=== PATIENT | female | born 1990 | race Two or more races ===

== ENCOUNTER 2017-08-02 13:26 | Emergency (ER) | payer OTHER ==
[2017-08-02 13:35] VITALS: TEMP 98.3; BMI 32.3
[2017-08-02] MEDS ORDERED: ONDANSETRON *ODT* 4 MG TABLET SL ONE (14:34)
--- NOTE | 2017-08-02 14:34 | PDOC ---
Rapid Medical Evaluation Chief Complaint: Nausea/Vomiting Time Seen by Provider: 08/02/17 14:29 Medical Evaluation: Allergies Allergy/AdvReac Type Severity Reaction Status Date / Time No Known Allergies Allergy Verified 08/02/17 13:32 Vital Signs Temp Pulse Resp BP Pulse Ox 98.3 F 101 H 18 91/54 100 08/02/17 13:32 08/02/17 13:32 08/02/17 13:32 08/02/17 13:32 08/02/17 13:32 08/02/17 14:31 Pt. is a 26 y/o F 9 weeks . States she has vomiting since 6 weeks. On diclegis and vomiting up medication as well. Sent by her [facility]ER for eval. Lower abdominal pain with vomiting. No vaginal bleeding, dysuria, hematuria. Pt. with documented IUP by her OB. Exam: ambulatory, AAOX3, breathing easily. No active vomiting Orders: labs, IV insert Pt. to proceed to main ED for further evaluation. Discharge Disposition - Discharge Dispostion Last Admission D/C Date: 09/03/13 - Referrals Referrals: Jayesh Ferrara MD [Primary Care Provider] - - Patient Instructions - Post Discharge Activity
[2017-08-02] MEDS ORDERED: ONDANSETRON *ODT* 4 MG TABLET ONE (15:10)
[2017-08-02 15:25] LABS: BASO % 0.6 % (0-2.0); EOS % 0.1 % (0-4.5); HEMOGLOBIN 12.1 GM/dL (10.7-15.3); LYMPH % 20.3 % (8-40); MCH 30.5 pg (25.7-33.7); MCHC 33.6 g/dl (32.0-36.0); MEAN CELL VOLUME 90.8 fl (80-96); MEAN PLT VOLUME 8.8 fl (7.5-11.1); MONO % 8.4 % (3.8-10.2); NEUT % 70.6 % (42.8-82.8); PLATELET COUNT 268 K/MM3 (134-434); RBC 3.96 M/mm3 (3.60-5.2); RDW 13.8 % (11.6-15.6); WHITE BLOOD COUNT 7.2 K/mm3 (4.0-10.0)
[2017-08-02] MEDS ORDERED: SODIUM CHLORIDE 1,000 ML IV STA (15:36)
--- NOTE | 2017-08-02 15:43 | PDOC ---
History of Present Illness - General Chief Complaint: Nausea/Vomiting Stated Complaint: VOMITING (9 WKS ) Time Seen by Provider: 08/02/17 14:29 History Source: Patient - History of Present Illness Timing/Duration: reports: getting worse Past History - Past Medical History Allergies/Adverse Reactions: Allergies Allergy/AdvReac Type Severity Reaction Status Date / Time No Known Allergies Allergy Verified 08/02/17 13:32 Home Medications: Ambulatory Orders Sulfamethoxazole/Trimethoprim [Bactrim Ds -] 1 tab PO BID #14 tablet 06/02/15 Metoclopramide HCl [Reglan] 10 mg PO Q8H #15 tablet 08/02/17 Asthma: No Cancer: No Cardiac Disorders: No COPD: No Diabetes: No HTN: No Hypercholesterolemia: Yes Seizures: No Thyroid Disease: No - Surgical History Abdominal Surgery: Yes - Reproductive History (#): 6 Para: 1 Therapeutic (s) & number: Yes (2) Spontaneous : 2 - Suicide/Smoking/Psychosocial Hx Smoking History: Never smoked Have you smoked in the past 12 months: No Information on smoking cessation initiated: No Hx Alcohol Use: No Drug/Substance Use Hx: No Substance Use Type: None Hx Substance Use Treatment: No Review of Systems - Review of Systems Constitutional: No: Fever ABD/GI: Yes: Nausea, Vomiting. No: Abdominal cramping : No: Dysuria, Discharge *Physical Exam - Vital Signs Last Vital Signs Temp Pulse Resp BP Pulse Ox 98.3 F 101 H 18 91/54 100 08/02/17 13:32 08/02/17 13:32 08/02/17 13:32 08/02/17 13:32 08/02/17 13:32 - Physical Exam General Appearance: Yes: Appropriately Dressed. No: Apparent Distress HEENT: positive: Normal Voice Neck: positive: Supple Respiratory/Chest: negative: Respiratory Distress Gastrointestinal/Abdominal: positive: Soft. negative: Tender Integumentary: positive: Dry, Warm Neurologic: positive: Fully Oriented, Alert, Normal Mood/Affect ED Treatment Course - LABORATORY CBC & Chemistry Diagram: 08/02/17 15:17 08/02/17 15:17 - ADDITIONAL ORDERS Additional order review: 08/02/17 15:17 RBC 3.96 D MCV 90.8 MCHC 33.6 RDW 13.8 MPV 8.8 Neutrophils % 70.6 Lymphocytes % 20.3 Monocytes % 8.4 Eosinophils % 0.1 D Basophils % 0.6 - Medications Given in the ED: ED Medications Discontinued Medications Generic Name Dose Route Start Last Admin Trade Name Gaurang PRN Reason Stop Dose Admin Ondansetron HCl 4 mg 08/02/17 14:34 08/02/17 15:11 Zofran Odt - SL 08/02/17 14:35 4 mg ONCE ONE Administration Medical Decision Making - Medical Decision Making 08/02/17 15:37 26 yo F, , ~9 weeks by dates, on diclegis for n/v of that developed during 6 week gestation, here with complaint that 3 days ago meds stopped working and has been unable to tolerate po. No abdominal pain, vaginal bleeding or dysuria. Ultrasound 1 week ago showing normal developing fetus with cardiac activity. Was given zofran at triage and feels better per pt See exam Hyperemesis Hypotensive and tachy -IVF -zofran given in RME -labs -reassess/po trial 08/02/17 17:39 Patient currently asymptomatic and able to tolerate po. Labs unremarkable and repeat vitals improved. Patient stable for discharge. Prescription for Reglan sent to pharmacy. Has upcoming OB appointment. Reasons to return discussed with patient *DC/Admit/Observation/Transfer Diagnosis at time of Disposition: Hyperemesis - Discharge Dispostion Disposition: HOME Condition at time of disposition: Improved - Prescriptions Prescriptions: Metoclopramide HCl [Reglan] 10 mg PO Q8H #15 tablet - Referrals Referrals: Jayesh Ferrara MD [Primary Care Provider] - - Patient Instructions Printed Discharge Instructions: DI for Hyperemesis Gravidarum Additional Instructions: Take Reglan as directed. If symptoms worsen, return to ED. Otherwise, follow-up with your OB - Post Discharge Activity
[2017-08-02 16:01] LABS: URINE APPEARANCE CLEAR; URINE BILIRUBIN NEGATIVE (<2.0 mg/dL); URINE COLOR AMBER; URINE GLUCOSE (UA) 1+ (NEGATIVE); URINE KETONE TRACE (NEGATIVE); URINE LEUK ESTERASE NEGATIVE (NEGATIVE); URINE NITRITE NEGATIVE (NEGATIVE); URINE UROBILINOGEN 4.0 E.U/dl mg/dL (0.2-1.0)
[2017-08-02 16:02] LABS: URINE PROTEIN 1+ (NEGATIVE)
[2017-08-02 16:03] LABS: EPI CELLS RARE /HPF (FEW); URINE MUCUS MODERATE
[2017-08-02 16:08] LABS: ALBUMIN 3.4 g/dl (3.4-5.0); ANION GAP 7 (8-16); BLOOD UREA NITROGEN 11 mg/dL (7-18); CALCIUM 8.9 mg/dL (8.5-10.1); CHLORIDE 102 mmol/L (98-107); CO2 26 mmol/L (21-32); CREATININE 0.7 mg/dL (0.55-1.02); GLUCOSE,RANDOM 83 mg/dL (74-106); POTASSIUM 4.4 mmol/L (3.5-5.1); SGOT/AST 13 U/L (15-37); SGPT/ALT 39 U/L (12-78); SODIUM 135 mmol/L (136-145)
[2017-08-02 16:09] LABS: ALK PHOS 57 U/L (45-117); BILIRUBIN,TOTAL 0.4 mg/dL (0.2-1.0); TOT PROT 7.4 g/dl (6.4-8.2)
[2017-08-02 17:37] VITALS: BP 120/63; PULSE 90
== END 2017-08-02 17:55 | disposition home or self-care (01) ==
LOC: JER 13:26
PROC: 3E0337Z Introduction of Electrolytic and Water Balance Substance into Peripheral Vein, Percutaneous Approach (ICD-10-PCS; principal; 2017-08-02)
DX: O26.891 Other specified pregnancy related conditions, first trimester (principal); O21.0 Mild hyperemesis gravidarum; Z3A.09 9 weeks gestation of pregnancy
CPT/HCPCS: 36415; 80053; 81003; 81015; 85025; 87086; 99283-25; J7030; Q0162

== ENCOUNTER 2018-02-13 06:55 | Inpatient (IN) | payer OTHER ==
[~2018-02-13 06:55] MED LIST: ELECTROLYTE-148 SOLN 1,000 ML IV ONE
[2018-02-13] MEDS: ELECTROLYTE-148 SOLN 1,000 ML IV SCH (07:25)
[2018-02-13 08:19] VITALS: BMI 34.8
[2018-02-13] MEDS ORDERED: morphine SULFATE/Preservative Free 0.5 MG/ML (1cc Syringe) ONE (08:54)
[2018-02-13] MEDS ORDERED: ePHEDrine SULFATE 50 MG/1 ML AMPULE ONE (08:54)
[2018-02-13] MEDS ORDERED: CITRIC ACID/SODIUM CITRATE 30 ML UNIT-DOSE CUP PO ONE (09:00)
[2018-02-13] MEDS ORDERED: OXYTOCIN 20 UNITS in 0.9% NS 20 UNIT/1,000 ML INFUS.BAG IV ONE (09:12)
[2018-02-13] MEDS ORDERED: morphine SULFATE/Preservative Free 0.5 MG/ML (1cc Syringe) EP ONE (09:25)
[2018-02-13] MEDS: OXYTOCIN 20 UNITS in 0.9% NS 20 UNIT/1,000 ML INFUS.BAG IV SCH ×2 (10:07→20:20)
[2018-02-13] MEDS ORDERED: METHYLERGONOVINE MALEATE 0.2 MG/1 ML AMP IM PRN (10:52)
[2018-02-13] MEDS ORDERED: WITCH HAZEL 50% (TUCKS) 40 PAD/JAR PAD TP PRN (10:52)
[2018-02-13] MEDS ORDERED: SENNOSIDES/DOCUSATE COMBO (SENNA PLUS) TABLET (UD) PO PRN (10:52)
[2018-02-13] MEDS ORDERED: DEXTROSE 5%-LACTATED RINGERS 1,000 ML IV SCH (11:00)
--- NOTE | 2018-02-13 11:02 | HP ---
Past Medical History - Admission History of Present Illness: 27 yo @ 37 1/7 wks by first trimester ultrasound, EDC 03/05/2018 complicated by: 1. Intrahepatic cholestasis of - diagnosed at 34 wks on ursodiol 300 BID 2. Prior CD x2 3. Hyperemesis in first trimester - resolved at 26 wks Patient presented for scheduled repeat CD at 37 wks, as recommended by [facility] for cholestasis of . She reports movement, denies leakage of fluid, or vaginal bleeding. History Source: Patient Limitations to Obtaining History: No Limitations - Past Medical History Cardiovascular: No: HTN Pulmonary: No: Asthma ...: 6 ...Para: 2 ...Term: 2 ...: 0 ...Spon : 2 ...Induced : 1 ...Multiple Gestation: 0 ...LMP: 05/22/17 ... Weeks Gestation by Dates: 38.1 ...EDC by Dates: 02/26/18 ...EDC by Sono: 03/06/18 Heme/Onc: No: Anemia Additional Medical History: Hypercholesterolemia. hx/o Scar etopic - s/p methotrexate x 2 - Past Surgical History Past Surgical History: Yes: Hx Myomectomy: No Hx Transabdominal Cerclage: No - Smoking History Smoking history: Unknown if ever smoked Have you smoked in the past 12 months: No - Alcohol/Substance Use Hx Alcohol Use: No History of Substance Use: reports: None - Social History History of Recent Travel: No Home Medications - Allergies Allergies/Adverse Reactions: Allergies Allergy/AdvReac Type Severity Reaction Status Date / Time No Known Allergies Allergy Verified 02/13/18 08:26 - Home Medications Home Medications: Ambulatory Orders Vitamins (Sjr) - 1 tab PO DAILY 11/05/17 Ursodiol [Actigall] 300 mg PO BID 02/02/18 Iron 100 Plus Tablet 1 tablet PO DAILY 02/13/18 Family Disease History - Family Disease History Family History: Denies Review of Systems - Review of Systems Constitutional: reports: No Symptoms, Other (itching) Cardiovascular: reports: No Symptoms Respiratory: reports: No Symptoms Gastrointestinal: reports: No Symptoms Genitourinary: reports: No Symptoms Musculoskeletal: reports: No Symptoms Neurological: reports: No Symptoms Endocrine: reports: No Symptoms Hematology/Lymphatic: reports: No Symptoms Physical Exam - Maternity Vital Signs: Vital Signs Temperature 98.3 F 02/13/18 06:55 Pulse Rate 110 H 02/13/18 06:55 Respiratory Rate 20 02/13/18 08:20 Blood Pressure 114/65 02/13/18 06:55 O2 Sat by Pulse Oximetry (%) Constitutional: Yes: Well Nourished, No Distress, Calm Cardiovascular: Yes: Regular Rate and Rhythm Lungs: Clear to auscultation - Abdominal Exam/OB Number of Fetuses: Single Presentation: Vertex Contractions: No Regularity: Regular Monitor Mode: External Category: I Accelerations: Non-Uniform Decelerations: None - Vaginal Exam/OB Vaginal Bleediing: No - Physical Exam Edema: Yes Edema: LLE: Trace, RLE: Trace Psychiatric: Yes: Alert, Oriented - Labs Lab Results: PNL: A positive, antobody negative, RPR NR; HIV neg; Rubella immune; GCT WNL; Consyl WNL; Sequential screen WNL Hemorrhage Risk Assessment - Risk Factors Medium Risk Factors: Yes: None High Risk Factors: Yes: None Risk Score: 1 Risk Level: Medium Risk Assessment/Plan 27 yo @ 37 wks for repeat CD 1. Admit to L&D 2. Routine labs reviewed 3. Ancef button cutter to OR 4. Will proceed to OR
--- NOTE | 2018-02-13 11:23 | PN ---
"Delivery - Delivery Section: Repeat Type of Anesthesia: Spinal Episiotomy/Laceration: None EBL (cc): 800 Delivery, Single - Stages of Labor Date of Delivery: 02/13/18 Time of Delivery: 10:06 Time Placenta Delivered: 10:07 Placenta: Yes: Manual Removal - Condition of Property Insurance Inspector/Operations Team Leader Present: Yes Name: Sherie Baron Infant Gender: Female Weight: 6 lb 6 oz Position: Left, OT Total Hours ROM (Hrs/Mins): 2 mins - 1 Minute Total Score: 9 5 Minutes Total Score: 9 - Feeding Plan Initial Plan: Elected not to breastfeed exclusively throughout hospitalization Remarks - Remarks Remarks: Surgeon: Hammad | Assist: Mich | Anesthesia: Olteanu IVF: 2000cc | EBL: 800 | UOP: 100 Findings: female infant, LOT position, 9,9, wt 6lb 6oz 18' Dictation: [id number]"
[2018-02-13] MEDS ORDERED: ONDANSETRON 4 MG/2 ML VIAL IVPUSH PRN (11:25)
[2018-02-13] MEDS: IBUPROFEN 800 MG/8 ML IJ IVPB PRN (12:30)
[2018-02-13] MEDS ORDERED: IBUPROFEN 800 MG/8 ML IJ IVPB ONE (12:30)
--- NOTE | 2018-02-13 14:17 | OP ---
DATE OF OPERATION: 02/13/2018 ATTENDING PHYSICIAN: Denise Cueva MD PREOPERATIVE DIAGNOSIS: Intrauterine at 37 weeks with cholestasis for repeat section as recommended by Maternal [facility]. FINDINGS: Female LOT position, Apgars 9, 9, weight 6 pounds 6 ounces, 18 inches. IV FLUIDS: 2000. ESTIMATED BLOOD LOSS: 800. URINE OUTPUT: 100. SURGEON: Denise Cueva MD LEGAL INSTRUCTOR: Abel Epps MD ANESTHESIA: Dr. Rutherford INDICATIONS: The patient is a 27-year-old 6, para 2 with prior section x2 with diagnosis of cholestasis at 34 weeks for recommended delivery at 36-37 weeks. She was counseled regarding the risks, benefits, alternatives, and complications of the procedure including infection, bleeding, damage to surrounding organs such as bowel, bladder, injury to infant because the infant is being delivered less than 39 weeks, risk of respiratory distress. She expressed understanding and was brought to the operating room. DESCRIPTION OF PROCEDURE: When anesthesia was found to be adequate, the patient was prepped and draped in the normal sterile fashion and placed in dorsal supine position with a leftward tilt. Approximately an 11-cm skin incision was made with a knife and carried down to the underlying rectus fascia using a knife. The fascia was nicked in the midline and extended laterally using Palafox scissors. Attention was brought to the inferior fascia incision, which was tented up using Sam clamps, dissected off the underlying rectus muscle using the Palafox scissors. Attention was directed to the superior portion where in a similar fashion it was tented up using Sam clamps and dissected off the underlying rectus muscle using Palafox scissors. The rectus abdominis were in the midline with a knife, and the peritoneal incision was extended superiorly and inferiorly using the Palafox scissors. The vesicouterine peritoneum was identified and entered sharply. The bladder flap was created sharply. Hysterotomy was performed with a knife and extended laterally bluntly, and the 's head was found to be LOT position, and 's head was brought to the hysterotomy site followed by shoulders and body without difficulty. The baby's mouth and nose werebulb suctioned. Cord blood and cord gases were collected and sent. The was handed to waiting NICU staff. The uterus was cleared of all clot and debris. The uterus was exteriorized and cleared of all clot and debris, and the placenta was manually extracted. The uterus was closed using 0 Biosyn in a running layer. The 2nd layer was an imbricating layer. The gutters were cleared of all clot and debris. Bilateral normal fallopian tubes and ovaries were noted. The uterus was returned into the abdominal cavity, and vesicouterine peritoneum was reapproximated. Good hemostasis was noted. Copious irrigation was performed. The peritoneum was closed using 2-0 Biosyn in a running fashion. The rectus muscles were reapproximated using0 Biosyn in an interrupted fashion. The fascia was closed using 0 Vicryl in a running fashion. The subcutaneous fat was closed using 2-0 Biosyn in a running fashion, and the skin was re-approximated using 3-0 Vicryl. The patient tolerated the procedure well. Estimated blood loss was 800 mL. The patient was brought to the recovery room in stable condition. Chriss [id number] MTDD
[2018-02-13] MEDS ORDERED: TUBERCULIN PPD 5 TU/0.1ML SYRINGE (IN PATIENT USE ONLY) ID ONE (15:00)
[2018-02-14] MEDS: IBUPROFEN 800 MG/8 ML IJ IVPB PRN (06:00)
[2018-02-14 07:04] LABS: BASO % 0.2 % (0-2.0); EOS % 0.7 % (0-4.5); HEMATOCRIT 25.8 % (32.4-45.2); LYMPH % 13.3 % (8-40); MCH 30.4 pg (25.7-33.7); MEAN CELL VOLUME 86.8 fl (80-96); MEAN PLT VOLUME 8.9 fl (7.5-11.1); MONO % 7.1 % (3.8-10.2); NEUT % 78.7 % (42.8-82.8); PLATELET COUNT 224 K/MM3 (134-434); RBC 2.97 M/mm3 (3.60-5.2); WHITE BLOOD COUNT 8.1 K/mm3 (4.0-10.0)
--- NOTE | 2018-02-14 09:03 | PN ---
Post Progress Note - Subjective Subjective: Patient without acute complaints. No nausea or vomiting. Denies fevers or chills. Pain well controlled, ambulating Not Breast feeding. Post Day: 1 Type of Delivery: Repeat C/S Vital Signs: Vital Signs Temperature 98.6 F 02/14/18 05:55 Pulse Rate 100 H 02/14/18 05:55 Respiratory Rate 20 02/14/18 05:55 Blood Pressure 100/62 02/14/18 05:55 O2 Sat by Pulse Oximetry (%) 100 02/13/18 12:05 Breast Exam: Yes: Soft Uterus: Yes: Fundus Firm Incision: Yes: Dressing dry and intact Abdomen/GI: Yes: Abdomen soft Lochia: Yes: Rubra Lochia, amount: Small Extremities: Yes: Calves non-tender Perineum: Yes: Intact Activity: Ambulating - Labs Labs: CBC WBC 8.1 K/mm3 (4.0-10.0) 02/14/18 06:00 RBC 2.97 M/mm3 (3.60-5.2) L 02/14/18 06:00 Hgb 9.0 GM/dL (10.7-15.3) L 02/14/18 06:00 Hct 25.8 % (32.4-45.2) L D 02/14/18 06:00 MCV 86.8 fl (80-96) 02/14/18 06:00 MCH 30.4 pg (25.7-33.7) 02/14/18 06:00 MCHC 35.0 g/dl (32.0-36.0) 02/14/18 06:00 RDW 15.0 % (11.6-15.6) 02/14/18 06:00 Plt Count 224 K/MM3 (134-434) 02/14/18 06:00 MPV 8.9 fl (7.5-11.1) 02/14/18 06:00 Absolute Neuts (auto) 6.4 K/mm3 (1.5-8.0) 02/14/18 06:00 Neutrophils % 78.7 % (42.8-82.8) 02/14/18 06:00 Lymphocytes % 13.3 % (8-40) D 02/14/18 06:00 Monocytes % 7.1 % (3.8-10.2) 02/14/18 06:00 Eosinophils % 0.7 % (0-4.5) 02/14/18 06:00 Basophils % 0.2 % (0-2.0) 02/14/18 06:00 Nucleated RBC % 0 % (0-0) 02/14/18 06:00 Assessment/Plan 27yo P3 s/p repeat c/section POD # 1 The pt is asymptomatic for s/sxs of anemia. care instructions reviewed. Rh positive no need for RhoGam Female formula feeding Will follow H/H Pruritis under control Continue routine postop care. Ambulation encouraged.
[2018-02-14] MEDS ORDERED: PATIENT'S OWN MEDICATION (NON-FORMULARY) (Prenatal Vitamins (Sjr) - 1 TAB) PO SCH (10:00)
[2018-02-14] MEDS: PRENATAL VITAMINS W/ FOLIC ACID TABLET (FP) PO SCH (10:27)
[2018-02-14] MEDS: ENOXAPARIN NA (PORCINE) 40 MG/0.4 ML DISP.SYRIN SQ SCH (10:27)
[2018-02-14] MEDS: IBUPROFEN 600 MG TABLET (FP) PO PRN ×3 (10:34→21:14)
[2018-02-14] MEDS: SIMETHICONE 80 MG TAB.CHEW (FP) PO PRN ×3 (10:34→21:15)
[2018-02-14] MEDS ORDERED: BISACODYL 10 MG SUPP.RECT RC PRN (10:52)
[2018-02-14] MEDS: OXYTOCIN 20 UNITS in 0.9% NS 20 UNIT/1,000 ML INFUS.BAG IV SCH (15:00)
[2018-02-14] MEDS: ELECTROLYTE-148 SOLN 1,000 ML IV SCH (15:00)
--- NOTE | 2018-02-14 15:20 | PN ---
Progress Note (short form) - Note Progress Note: Anesthesia postop note 27 y/o F s/p spinal/duramorph for repeat section POD#1, vss, aaox3, pain well controlled, sensory motor intact distally No anesthesia complications.
[2018-02-14] MEDS: oxyCODONE HCL 5 MG TABLET PO PRN ×2 (15:39→21:15)
[2018-02-15] MEDS: IBUPROFEN 600 MG TABLET (FP) PO PRN ×3 (05:43→20:47)
[2018-02-15] MEDS: oxyCODONE HCL 5 MG TABLET PO PRN ×3 (05:43→20:46)
[2018-02-15] MEDS: SIMETHICONE 80 MG TAB.CHEW (FP) PO PRN ×3 (05:43→20:47)
--- NOTE | 2018-02-15 07:26 | PN ---
Post Progress Note - Subjective Subjective: Patient without acute complaints. No nausea or vomiting. Denies fevers or chills. Pain well controlled, ambulating Not Breast feeding. Post Day: 2 Type of Delivery: Repeat C/S Vital Signs: Vital Signs Temperature 98.9 F 02/14/18 21:00 Pulse Rate 92 H 02/14/18 21:00 Respiratory Rate 20 02/14/18 21:00 Blood Pressure 116/69 02/14/18 21:00 O2 Sat by Pulse Oximetry (%) 100 02/13/18 12:05 - Labs Labs: CBC WBC 8.1 K/mm3 (4.0-10.0) 02/14/18 06:00 RBC 2.97 M/mm3 (3.60-5.2) L 02/14/18 06:00 Hgb 9.0 GM/dL (10.7-15.3) L 02/14/18 06:00 Hct 25.8 % (32.4-45.2) L D 02/14/18 06:00 MCV 86.8 fl (80-96) 02/14/18 06:00 MCH 30.4 pg (25.7-33.7) 02/14/18 06:00 MCHC 35.0 g/dl (32.0-36.0) 02/14/18 06:00 RDW 15.0 % (11.6-15.6) 02/14/18 06:00 Plt Count 224 K/MM3 (134-434) 02/14/18 06:00 MPV 8.9 fl (7.5-11.1) 02/14/18 06:00 Absolute Neuts (auto) 6.4 K/mm3 (1.5-8.0) 02/14/18 06:00 Neutrophils % 78.7 % (42.8-82.8) 02/14/18 06:00 Lymphocytes % 13.3 % (8-40) D 02/14/18 06:00 Monocytes % 7.1 % (3.8-10.2) 02/14/18 06:00 Eosinophils % 0.7 % (0-4.5) 02/14/18 06:00 Basophils % 0.2 % (0-2.0) 02/14/18 06:00 Nucleated RBC % 0 % (0-0) 02/14/18 06:00 Assessment/Plan 27yo P3 s/p repeat c/section POD # 2 The pt is asymptomatic for s/sxs of anemia. care instructions reviewed. Rh positive no need for RhoGam Female formula feeding Will follow H/H Pruritis under control Continue routine postop care. Ambulation encouraged.
[2018-02-15] MEDS: ELECTROLYTE-148 SOLN 1,000 ML IV SCH (07:30)
[2018-02-15] MEDS: ENOXAPARIN NA (PORCINE) 40 MG/0.4 ML DISP.SYRIN SQ SCH (09:31)
[2018-02-15] MEDS: PRENATAL VITAMINS W/ FOLIC ACID TABLET (FP) PO SCH (09:31)
--- NOTE | 2018-02-16 03:31 | PN ---
Post Progress Note - Subjective Subjective: Patient without acute complaints. Reports tolerating oral intake without nausea or vomiting. Ambulating without dizziness. Denies fevers or chills. Pain well controlled with oral pain medication. Bottlefeeding without issue. Passing flatus. Post Day: 3 Type of Delivery: Repeat C/S Vital Signs: Vital Signs Temperature 98.4 F 02/15/18 21:00 Pulse Rate 96 H 02/15/18 21:00 Respiratory Rate 20 02/15/18 21:00 Blood Pressure 112/60 02/15/18 21:00 O2 Sat by Pulse Oximetry (%) 100 02/13/18 12:05 Breast Exam: Yes: Soft Uterus: Yes: Fundus Firm, Fundus below umbilicus Incision: Yes: Sutures intact. No: Redness, Oozing Abdomen/GI: Yes: Abdomen soft, Tender (mild soft), Passing flatus, Tolerating PO. No: Abdominal Distention Lochia: Yes: Serosa Lochia, amount: Small Extremities: Yes: Calves non-tender, Edema (+1) Activity: Ambulating - Labs Labs: CBC WBC 8.1 K/mm3 (4.0-10.0) 02/14/18 06:00 RBC 2.97 M/mm3 (3.60-5.2) L 02/14/18 06:00 Hgb 9.0 GM/dL (10.7-15.3) L 02/14/18 06:00 Hct 25.8 % (32.4-45.2) L D 02/14/18 06:00 MCV 86.8 fl (80-96) 02/14/18 06:00 MCH 30.4 pg (25.7-33.7) 02/14/18 06:00 MCHC 35.0 g/dl (32.0-36.0) 02/14/18 06:00 RDW 15.0 % (11.6-15.6) 02/14/18 06:00 Plt Count 224 K/MM3 (134-434) 02/14/18 06:00 MPV 8.9 fl (7.5-11.1) 02/14/18 06:00 Absolute Neuts (auto) 6.4 K/mm3 (1.5-8.0) 02/14/18 06:00 Neutrophils % 78.7 % (42.8-82.8) 02/14/18 06:00 Lymphocytes % 13.3 % (8-40) D 02/14/18 06:00 Monocytes % 7.1 % (3.8-10.2) 02/14/18 06:00 Eosinophils % 0.7 % (0-4.5) 02/14/18 06:00 Basophils % 0.2 % (0-2.0) 02/14/18 06:00 Nucleated RBC % 0 % (0-0) 02/14/18 06:00 Assessment/Plan 27 POD #3 s/p repeat CD, afebrile, vital signs stable, mild asymptomatic anemia , doing well 1. Continue routine postoperative care. 2. Encourage ambulation and incentive spirometer use 3. Continue oral pain medication 4. Anticipate discharge home postoperative day #4 Percocet sent to patient's pharmacy today.
--- NOTE | 2018-02-16 07:43 | DS ---
Physical Exam-OPTOMETRIC TECH Vital Signs: Vital Signs Temperature 98.4 F 02/15/18 21:00 Pulse Rate 96 H 02/15/18 21:00 Respiratory Rate 20 02/15/18 21:00 Blood Pressure 112/60 02/15/18 21:00 O2 Sat by Pulse Oximetry (%) 100 02/13/18 12:05 Delivery - Delivery Section: Repeat Type of Anesthesia: Spinal Episiotomy/Laceration: None EBL (cc): 800 Delivery, Single - Stages of Labor Date of Delivery: 02/13/18 Time of Delivery: 10:06 Time Placenta Delivered: 10:07 Placenta: Yes: Manual Removal - Condition of Infant Digital Content Specialist/Shop Director Present: Yes Name: Sherie Baron Gender: Female Weight: 6 lb 6 oz Position: Left, OT Total Hours ROM (Hrs/Mins): 2 mins - 1 Minute Total Score: 9 5 Minutes Total Score: 9 - Feeding Plan Initial Plan: Elected not to breastfeed exclusively throughout hospitalization Discharge Summary Reason For Visit: SECTION Procedures: Principal: delivery Hospital Course: Patient was admitted for routine delivery POD # 1 patient ambulated, voiding, passing gas, tolerating oral intake and with adequate pain control. Noted to have mild asymptomatic anemia She fulfilled all criteria for discharge POD #4 Condition: Good - Instructions Diet, Activity, Other Instructions: Physical activity Resume your normal everyday activity as tolerated no heavy lifting or exercise until seen by your surgeon. You may walk unlimited kellie of and climb stairs. You may resume driving the car when you feel safe and comfortable behind the wheel. No sexual activity as instructed. Wound care If you have a bandage, leave it on, and keep dry for 48-72 hours. After that time discard the outer bandage. If they are tapes on the skin under the out of bandage leave them in place. They will peel off in the next 7 to 10 days. Do Not Peel them off. You may shower the day after surgery. If there are tapes present on the skin, you may shower over them. Diet There are no dietary restrictions. Eat healthy, high-fiber foods. Drink 6 to 8 glasses of liquid each day. This will assist in keeping your bowels are regular. Pain management You may take Tylenol or acetaminophen or Ibuprofen (for example, Motrin, Advil etc.) from my pain prescription medication is ordered should be taken as prescribed for moderate to severe pain. Call MD for any of the following: Severe pain not relieved by medication Fever of 101 or higher Excessive bleeding or drainage on dressing Inability to urinate [facility] Reference #: [id number] Referrals: Denise Cueva MD [Staff Physician] - Disposition: HOME - Home Medications Comprehensive Discharge Medication List: Ambulatory Orders Vitamins (Sjr) - 1 tab PO DAILY 11/05/17 Iron 100 Plus Tablet 1 tablet PO DAILY 02/13/18 Oxycodone HCl/Acetaminophen [Percocet 5-325 mg Tablet] 1 tab PO Q6H #10 tablet MDD 4 02/16/18
[2018-02-16 07:45] LABS: BASO % 0.5 % (0-2.0); EOS % 2.4 % (0-4.5); HEMATOCRIT 25.7 % (32.4-45.2); HEMOGLOBIN 8.2 GM/dL (10.7-15.3); LYMPH % 34.6 % (8-40); MCH 28.5 pg (25.7-33.7); MCHC 32.1 g/dl (32.0-36.0); MEAN CELL VOLUME 88.8 fl (80-96); MEAN PLT VOLUME 8.4 fl (7.5-11.1); MONO % 8.4 % (3.8-10.2); NEUT % 54.1 % (42.8-82.8); PLATELET COUNT 210 K/MM3 (134-434); RBC 2.89 M/mm3 (3.60-5.2); RDW 15.9 % (11.6-15.6); WHITE BLOOD COUNT 5.7 K/mm3 (4.0-10.0)
[2018-02-16] MEDS: oxyCODONE HCL 5 MG TABLET PO PRN ×2 (08:28→19:14)
[2018-02-16] MEDS: SIMETHICONE 80 MG TAB.CHEW (FP) PO PRN ×2 (08:29→19:13)
[2018-02-16] MEDS: IBUPROFEN 600 MG TABLET (FP) PO PRN ×2 (08:29→19:13)
[2018-02-16] MEDS: ENOXAPARIN NA (PORCINE) 40 MG/0.4 ML DISP.SYRIN SQ SCH (10:18)
[2018-02-16] MEDS: PRENATAL VITAMINS W/ FOLIC ACID TABLET (FP) PO SCH (10:18)
[2018-02-17] MEDS: oxyCODONE HCL 5 MG TABLET PO PRN (07:08)
[2018-02-17] MEDS: IBUPROFEN 600 MG TABLET (FP) PO PRN (07:09)
[2018-02-17] MEDS: SIMETHICONE 80 MG TAB.CHEW (FP) PO PRN (07:10)
--- NOTE | 2018-02-17 08:16 | PN ---
Progress Note (short form) - Note Progress Note: pod 4, s/p c/s doing well, no c/o , no dizziness ,no excess vaginal bleeding. had BM Last Vital Signs Temp Pulse Resp BP Pulse Ox 98.6 F 72 20 109/56 L 100 02/16/18 21:26 02/16/18 21:26 02/16/18 21:26 02/16/18 21:26 02/13/18 12:05 abdomen soft, incision dry, clean no calf tenderness plan d/c home . follow up office 1 week CBC, BMP 02/16/18 07:00
[2018-02-17 09:02] VITALS: BP 111/62; PULSE 85; TEMP 98.9
[2018-02-17] MEDS: PRENATAL VITAMINS W/ FOLIC ACID TABLET (FP) PO SCH (09:45)
[2018-02-17] MEDS: ENOXAPARIN NA (PORCINE) 40 MG/0.4 ML DISP.SYRIN SQ SCH (09:45)
--- NOTE | 2018-02-20 13:59 | PATH ---
Surgical Pathology Report Patient Name: CLEMENTINA BAHENA Med. Rec. #: [id number] /Age/Gender: 1990 (Age: 27) / F Account: [id number] Location: [facility] OBS/LAY OUT CARPENTER Taken: 02/13/2018 Received: 02/14/2018 Reported: 02/20/2018 Physicians: Denise Cueva Specimen(s) Received PLACENTA Clinical History 38.1 weeks gestation, Final Diagnosis PLACENTA, SECTION: 454 G THIRD TRIMESTER PLACENTA WITH TRIVASCULAR UMBILICAL CORD AND UNREMARKABLE PLACENTAL MEMBRANES. Electronically Signed Purvi Bryan M.D. Gross Description The specimen is received fresh labeled placenta and is a 454 gram, 19.5 x 15.0 x 2.0 cm. placenta with attached membranes and umbilical cord. The attached membranes are mejia, translucent with focal opacities and insert marginally. The umbilical cord measures 15 cm. in length and averages 1.4 cm. in diameter. The cord inserts centrally. No true knots or strictures are identified. Cut surface of the umbilical cord reveals 3 vessels. The surface is yan-blue with minimal fibrin deposition and appropriate caliber vessels. The maternal surface is red-brown with focal defects. Sectioning reveals red-brown, spongy parenchyma. No lesions are identified. [employer] sections are submitted in three cassettes as follows: 1- membrane rolls and umbilical cord; 2-3- full thickness sections of placenta. 02/17/201802/17/2018
== END 2018-02-17 12:25 | disposition home or self-care (01) | DRG 786 ==
LOC: JLDR 06:55 → J3W 12:46
PROVIDERS: ADMIT Obstetrics & Gynecology; ATTEND Obstetrics & Gynecology
PROC: 10D00Z1 Extraction of Products of Conception, Low, Open Approach (ICD-10-PCS; principal; 2018-02-13)
DX: O34.211 Maternal care for low transverse scar from previous cesarean delivery (principal); K83.1 Obstruction of bile duct; O26.613 Liver and biliary tract disorders in pregnancy, third trimester; O26.893 Other specified pregnancy related conditions, third trimester; E78.00 Pure hypercholesterolemia, unspecified; Z3A.37 37 weeks gestation of pregnancy; Z37.0 Single live birth
CPT/HCPCS: 36415; 85025; 88307-TC; 94010